=== PATIENT | female | born 1970 | race Caucasian/White ===

== ENCOUNTER 2023-07-14 17:48 | Emergency (ER) | payer MEDICAID, SELFPAY ==
[2023-07-14 17:54] VITALS: BP 141/102
--- NOTE | 2023-07-14 20:38 | ED.GENMED ---
History of Present Illness
General
Chief Complaint: DVT/Possible Blood Clot
Source: patient
Exam Limitations: none
Time Seen by Provider: 07/14/23 19:08
Nursing documentation reviewed up to this point in time: agreed with
Travel History
Have you had any contact with someone who has COVID-19?: No
Do you have any symptoms of coronavirus? Fever > 100 degrees, chills, cough, shortness of breath, sore throat, loss of taste or smell, muscle aches, or headache?: No
History of Present Illness
History of Present Illness:
Patient to ED with complaint of bilateral calf pain, pain to left ant.. ankle. Symptoms started approx 1 week ago. No history of trauma. Brought to ED by spouse for eval. Denies fever/chills, recent illness.
Past History
Past History
ED Past Medical History: Hypercholesterolemia, Hypothyroidism and Other (G6PD deficiency)
ED Past Surgical History: Cholecystectomy and Tonsilectomy
Social History
Tobacco: Non-smoker
Alcohol: None
Drug: None
Personal:
Living: with family
Employment: Not employed
Family History
Family History: Other (Noncontributory)
Review of Systems
Review of Systems
Allergies reviewed?: Yes
All Other Systems: ROS reviewed and negative except as documented in HPI and ROS
Constitutional: Reports no symptoms
EENT: Reports no symptoms
Respiratory: Reports no symptoms
Cardiac: Reports no symptoms
ABD/GI: Reports no symptoms
Musculoskeletal: Reports joint pain (left ant ankjle)
Skin: Reports other (bruising left lat calf, swelling and tenderness left ant. ankle.)
Neurological: Reports no symptoms
Psychiatric: Reports no symptoms
Phy Exam
General Physical Exam
General Presentation: well appearing and no apparent distress
General age: appears stated age
General Skin: warm and dry
General Habitus: normal
General Mental: alert
Musculoskeletal Exam
Musculoskeletal Exam: other (Full ROM to BLE, ambulatory.)
Skin Exam
Skin Exam: normal color, warm/dry and no rash
Psychiatric Exam
Psychiatric Exam: normal mood/affect
Course
Orders/Labs/Results
Orders:
Orders
07/14/23 17:56
US Legs, Bilateral [US Periph Venous LOWER Ext Lex] Urgent
Comment:
Reason For Exam: pain b/l calf areas
Vital Signs
Initial and Last Documented VS:
Initial Vital Signs
Temp Pulse Resp BP Pulse Ox
98.3 F 88 20 141/102 96
07/14/23 17:54 07/14/23 17:54 07/14/23 17:54 07/14/23 17:54 07/14/23 17:54
Last Documented Vital Signs
Temp Pulse Resp BP Pulse Ox
98.3 F 88 20 141/102 99
07/14/23 17:54 07/14/23 17:54 07/14/23 17:54 07/14/23 17:54 07/14/23 20:00
*Radiology
Radiology exam reviewed: radiology read reviewed
*Pulse Oximetry
Patient hypoxic: no
*Critical Care Note
Total Time (30-74mins, 75-104mins- exclusive of procedures): Not Applicable
ED Attending Note
-
Portions of this chart may have been created with voice recognition software.� Occasional wrong word or��sound alike� substitutions may have occurred due to the inherent limitations of voice recognition software.
Discharge Plan
Departure
Patient Disposition: Home (Routine Discharge)
Date of Disposition: 07/14/23
Time of Disposition: 20:08
Patient with high blood pressure during this ER visit?: No
Condition: Good
Covid-19: Not Applicable
Discharge Problem:
Leg pain
Instructions: Using Cold for Pain, Musculoskeletal Pain
Prescriptions:
No Action
levothyroxine 100 MCG tablet
100 mcg PO DAILY
albuterol sulfate 1 PUFF HFA aerosol inhaler
1 puff inhalation UD
fluticasone propionate [Flovent Diskus] 100 MCG blister with device
1 puff QID
ascorbic acid (vitamin C) [Vitamin C] 1,000 MG tablet
1,000 mg PO DAILY
fluticasone propionate 1 SPRAY spray,suspension
2 spray intranasal DAILY
dicyclomine 20 mg tablet
20 mg PO QID PRN (Reason: abdominal cramping pain) Qty: 20 0RF
Referrals:
Sheri Santana MD [Family Provider] - Tomorrow
Interventions
Interventions:
*Risk Screen - Suicide Last Done: 07/14/23 17:54
*General Assessment Last Done: 07/14/23 17:54
ED- Cardiac Assessment Last Done: 07/14/23 20:00
ED- Pulmonary Assessment Last Done: 07/14/23 20:00
ED-Skin Assessment Last Done: 07/14/23 20:00
Musculoskeletal Injury Exam
Musculoskeletal Injury Exam
Bilateral Calf:
Pain with Movement?: Moderate
Tender to palpation?: Moderate
Soft tissue swelling?: None
External deformity and angulation?: None
Joint effusion?: None
Contusion?: None
Hematoma-local bleeding into tissue?: Other (small hematoma to left lat calf)
Strain- Sprain- Tear (Connective tissue injury)?: None
Crepitus with movement?: No
Joint instability?: No
Malalignment/deformity?: No
Range of motion: Full
Distal skin color and temperature: normal-warm & good color
Capillary Refill: normal
Normal distal neurovascular exam?: Yes
Peripheral Pulses: posterior tibial (left): 3+, posterior tibial (right): 3+, dorsalis pedis (left): 3+ and dorsalis pedis (right): 3+
left ant ankle:
Pain with Movement?: Moderate
Tender to palpation?: Moderate
Soft tissue swelling?: Mild
External deformity and angulation?: None
Joint effusion?: None
Contusion?: None
Hematoma-local bleeding into tissue?: None
Strain- Sprain- Tear (Connective tissue injury)?: None
Crepitus with movement?: No
Joint instability?: No
Malalignment/deformity?: No
Range of motion: Limited
Distal skin color and temperature: normal-warm & good color
Capillary Refill: normal
Normal distal neurovascular exam?: Yes
[2023-07-14 21:21] VITALS: BP 112/71
== END 2023-07-14 21:22 | disposition home or self-care (01) ==
LOC: EMR 17:48
PROVIDERS: EMERGENCY PHYSICIAN Emergency Medicine; FAMILY PHYSICIAN Internal Medicine
DX: M79.661 Pain in right lower leg (principal); M79.662 Pain in left lower leg; M25.572 Pain in left ankle and joints of left foot; E78.00 Pure hypercholesterolemia, unspecified; E03.9 Hypothyroidism, unspecified
CPT/HCPCS: 99284; 93970